=== PATIENT | female | born 1990 | race Caucasian/White ===

== ENCOUNTER 2019-04-03 14:44 | Outpatient (CLI) | payer OTHER | END 2019-04-03 14:45 | disposition home or self-care (01) | LOC: CTENTCT 14:44 | PROVIDERS: ATTEND Otolaryngology Plastic Surgery within the Head & Neck | DX: J32.9 Chronic sinusitis, unspecified (principal) | CPT/HCPCS: 70486 ==

== ENCOUNTER 2019-05-03 08:54 | Day surgery (SDC) | payer OTHER ==
[2019-05-02 12:32] VITALS: BMI 26.6
[2019-05-03] MEDS ORDERED: Fentanyl 100 MCG/2 ML VIAL ONE ×2 (09:29→11:58)
[2019-05-03] MEDS ORDERED: Oxymetazoline HCl 0.05% ( 15 ML ) ONE (09:32)
[2019-05-03] MEDS ORDERED: Lidocaine 1% PF 5 ML VIAL ONE (10:01)
[2019-05-03] MEDS ORDERED: Dexamethasone 20 MG/5 ML VIAL ONE (10:01)
[2019-05-03] MEDS ORDERED: PROPOFOL 200 MG/20 ML VIAL ONE (10:01)
[2019-05-03] MEDS ORDERED: Ondansetron PF 4 MG/2 ML Vial ONE (10:01)
[2019-05-03 10:02] LABS: BHCG - Serum Negative (NEGATIVE); Pregs Control Background? CLEAR/WHITE (CLR/WHITE); Pregs Control Bar Appear? YES (CONTROL BAR)
[2019-05-03] MEDS ORDERED: Midazolam HCl 2 mg/2 ml Vial ONE (10:34)
[2019-05-03] MEDS ORDERED: Lidocaine 1% w/Epinephrine 1:100K 20 ML VIAL ONE (10:42)
[2019-05-03] MEDS ORDERED: Morphine 4 MG/ML VIAL ONE (13:30)
[2019-05-03] MEDS ORDERED: HYDROcodone/Acetaminophen 5/325 mg Tablet ONE (13:52)
--- NOTE | 2019-05-04 09:28 | OP ---
DATE OF PROCEDURE: 05/03/2019 PREOPERATIVE DIAGNOSES: 1. Chronic rhinosinusitis. 2. Bilateral inferior turbinate hypertrophy. 3. Nasal obstruction. POSTOPERATIVE DIAGNOSES: 1. Chronic rhinosinusitis. 2. Bilateral inferior turbinate hypertrophy. 3. Nasal obstruction. PROCEDURES PERFORMED: 1. Bilateral endoscopic sinus surgery, total ethmoidectomies. 2. Bilateral endoscopic sinus surgery, maxillary antrostomies. 3. Bilateral endoscopic sinus surgery, frontal sinusotomies. 4. Bilateral inferior turbinate submucosal resection. ESTIMATED BLOOD LOSS: 20 mL. COMPLICATIONS: None. ANESTHESIA: GETA. DESCRIPTION OF PROCEDURE: The patient was taken to the operating room and placed supine on the table. Following this, 1% lidocaine with 1:100,000 epinephrine were injected into the middle turbinates and lateral nasal wall bilaterally. Following this, the 0-degree endoscope was used to visualize the middle turbinate and the middle turbinate was medially fractured using a [place] elevator. Following this, the uncinate process was identified and was examined. The uncinate process was noted to be inflamed and laterally displaced bilaterally. Following this, a ball-ended probe was used to anteriorly fracture the uncinate process bilaterally. Following this, the 0-degree microdebrider and the up-biting [place] forceps were used to remove the uncinate process bilaterally. Following this, the natural maxillary sinus ostia was identified with the 0-degree endoscope and the ball-ended probe. The natural maxillary ostia was then widened using a 40-degree microdebrider and the straight [place] forceps bilaterally. Following this, the ethmoidal bulla was identified bilaterally. A 0-degree microdebrider was used to puncture the ethmoidal bulla on its medial and inferior aspect bilaterally. Following this, the 0-degree microdebrider and the up-biting [place] forceps were used to remove the ethmoidal bulla. Following this, the grand lamella was identified posterior to this area and was punctured using the 0-degree microdebrider bilaterally. Following this, the ethmoidal cells were opened from the posterior to the anterior using the 0-degree microdebrider, the 40-degree microdebrider and the up-biting [place] forceps bilaterally. Following this, the 45-degree endoscope and the 40-degree microdebrider blade were used to further remove the anterior ethmoidal cells to the level of the frontal sinus recess bilaterally. Following this, the 45-degree endoscope and the 40-degree microdebrider blade were used to further open the frontal sinus recess and frontal sinus ostia bilaterally. Following this, inferior turbinates were then punctured on the anterior inferior aspect with the submucosal microdebrider and submucosal resection was performed of the anterior-inferior portions of the inferior turbinates bilaterally. The patient tolerated the procedure well. Job ID: [id number]
== END 2019-05-03 14:20 | disposition home or self-care (01) ==
LOC: SDC 08:54
PROVIDERS: ATTEND Otolaryngology Plastic Surgery within the Head & Neck
DX: J32.4 Chronic pansinusitis (principal); J34.3 Hypertrophy of nasal turbinates; J34.89 Other specified disorders of nose and nasal sinuses; J30.9 Allergic rhinitis, unspecified; G40.909 Epilepsy, unspecified, not intractable, without status epilepticus; Z79.899 Other long term (current) drug therapy; Z88.1 Allergy status to other antibiotic agents
CPT/HCPCS: 36415; 84703; 85014; J1100; J2001; J2250; J2270; J2405; J2704; J3010